=== PATIENT | male | born 1985 | race African-American/Black ===

== ENCOUNTER 2016-08-10 21:34 | Emergency (ER) | payer OTHER ==
[~2016-08-10] VITALS: Wt 171.0 kg
--- NOTE | 2016-08-10 21:48 | ERA ---
ER Documentation Chief Complaint Date/Time DATE: 08/10/16 TIME: 21:48 Chief Complaint Left thumb lac HPI The patient is a 30-year-old male, presenting to the ER because of distal left thumb laceration with a knife about 45 minutes prior to arrival. He denies any other injury. He does not smoke nor drink, did not have tetanus injection for many years Past medical/surgical history: None ROS All systems reviewed and are negative except as per history of present illness. Medications Home Meds Active Scripts Hydrocodone/Acetaminophen (Baraboo 5-325 Tablet) 1 Each Tablet, 1 TAB PO Q6H Y for PAIN, #7 TAB Prov:JIM PEREIRA MD 08/10/16 Cephalexin* (Keflex*) 500 Mg Capsule, 500 MG PO QID for 10 Days, CAP Prov:JIM PEREIRA MD 08/10/16 Allergies Allergies: Coded Allergies: No Known Allergy (Unverified , 08/10/16) Physical Exam Vitals Vital Signs Date Time Temp Pulse Resp B/P Pulse Ox O2 Delivery O2 Flow Rate FiO2 08/10/16 21:37 98.4 63 20 146/79 99 Physical Exam Const: No acute distress. Head: Atraumatic. Eyes: Normal Conjunctiva. ENT: Normal External Ears, Nose and Mouth. Neck: Full range of motion. No meningismus. Resp: Clear to auscultation bilaterally. Cardio: Regular rate and rhythm. Abd: Soft, non distended, normal bowel sounds, non tender. Skin: No petechiae or rashes. Back: No midline or flank tenderness. Ext: Distal left thumb with avulsion laceration, no active bleeding. He is able to flex and extend the thumb with no difficulty Neur: Awake and alert. No focal deficit Psych: Normal Mood and Affect. Results 24 hrs Current Medications Medications (Trade) Dose Ordered Sig/Fany Route PRN Reason Start Time Stop Time Status Last Admin Dose Admin Acetaminophen/ Hydrocodone Bitart (Baraboo (10/325)) 1 tab ONCE ONCE PO 08/10/16 22:00 08/10/16 22:01 DC 08/10/16 22:27 Ondansetron HCl (Zofran Odt) 4 mg ONCE STAT ODT 08/10/16 21:58 08/10/16 21:59 DC 08/10/16 22:27 Diphtheria/ Tetanus/Acell Pertussis (Adacel) 0.5 ml ONCE ONCE IM* 08/10/16 22:00 08/10/16 22:01 DC 08/10/16 22:29 Procedures/MDM [place] [id number] Radiology Main Line: [phone] DIAGNOSTIC IMAGING REPORT Patient: NATASHA MENDOZA : 1985 Age: 30 Sex: M MR #: [id number] DOS: 08/10/16 2158 Ordering MD: JIM PEREIRA MD Location: [facility] Room/Bed: PROCEDURE: XR finger. CLINICAL INDICATION: Left thumb pain, concern for fracture TECHNIQUE: PA, oblique and lateral views of the left thumb were obtained. COMPARISON: None available. FINDINGS: Mineralization is within normal limits. No fracture or osseous lesion is identified. Joint spaces are preserved. Soft tissues are unremarkable. No radiopaque foreign body is present. RPTAT:HJJR IMPRESSION: Unremarkable left thumb series. Physician Tyron Date Time Electronically viewed and signed by Physician Tyron on 08/10/2016 23:19 JR/ CC: JIM PEREIRA MD MEDICAL MAKING DECISION: The patient is a 30-year-old male, presenting with acute avulsion laceration of the distal left thumb with minimal bone exposure. It was cleaned with normal saline and dressed with Xeroform. He was treated with Baraboo 10 mg p.o. for pain, Zofran ODT for nausea, Tdap IM Departure Diagnosis: Primary Impression: Laceration of left thumb Condition: Good Comments he was discharged with Baraboo, Keflex I discussed the findings with the patient. I advised the patient to follow-up with the local orthopedist Dr. Rodriguez in about 1-2 days, sooner if needed and return if any concern. The patient's blood pressure was elevated (>120/80) but appears stable without evidence of hypertension emergency or urgency. The patient was counseled about the risks of hypertension and urged to pursue outpatient monitoring and therapy within a week with their primary care physician. JIM PEREIRA MD Aug 10, 2016 21:48
[2016-08-10] MEDS ORDERED: ONDANSETRON (ODT) 4 MG TAB ODT STA (21:58)
[2016-08-10] MEDS ORDERED: DIPHTH/TET/ACEL PERTUSS (ADULT) 0.5 ML VIAL IM* ONE (22:00)
[2016-08-10] MEDS ORDERED: HYDROCODONE/APAP (10/325) TAB PO ONE (22:00)
--- NOTE | 2016-08-10 23:19 | RADRPT ---
PROCEDURE: XR finger. CLINICAL INDICATION: Left thumb pain, concern for fracture TECHNIQUE: PA, oblique and lateral views of the left thumb were obtained. COMPARISON: None available. FINDINGS: Mineralization is within normal limits. No fracture or osseous lesion is identified. Joint spaces are preserved. Soft tissues are unremarkable. No radiopaque foreign body is present. RPTAT:HJJR IMPRESSION: Unremarkable left thumb series. Physician Tyron Date Time Electronically viewed and signed by Joe Evans Physician on 08/10/2016 23:19 JR/
[2016-08-10] MEDS ORDERED: CEPH-443 PO (23:24)
[2016-08-10] MEDS ORDERED: HYDR-906 PO (23:25)
== END 2016-08-11 00:26 | disposition home or self-care (01) ==
LOC: FTE 21:34
DX: S61.012A Laceration without foreign body of left thumb without damage to nail, initial encounter (principal); W26.0XXA Contact with knife, initial encounter; Y92.9 Unspecified place or not applicable; Z23 Encounter for immunization
CPT/HCPCS: 73140; 90471; 90715